=== PATIENT | male | born 1975 | race Caucasian/White ===

== ENCOUNTER 2021-08-27 21:19 | Emergency (ER) | payer BC ==
[~2021-08-27] VITALS: Ht 177.8 cm; Wt 120.0 kg
[2021-08-27] MEDS ORDERED: ONDANSETRON PF 4 MG/2 ML VIAL. IVP ONE (21:45)
[2021-08-27] MEDS ORDERED: methylPREDNISolone SOD SUCC PF 125 MG/2 ML VIAL. IV ONE (21:45)
[2021-08-27] MEDS ORDERED: IV NORMAL SALINE 1000ML BAG 1,000 ML IV ONE (21:45)
[2021-08-27 21:59] LABS: BASO # 0.1 x10^3/uL (0.0-0.2); BASO % 1 % (0-3); EOS # 0.5 x10^3/uL (0.0-0.7); EOS % 7 % (0-3); HEMOGLOBIN 14.5 g/dL (13.0-17.5); LYMPH # 2.1 x10^3/uL (1.0-4.8); LYMPH % 30 % (24-48); MEAN CORPUSCULAR HEMOGLOBIN 29 pg (25-35); MEAN CORPUSCULAR HGB CONC 35 g/dL (31-37); MEAN CORPUSCULAR VOLUME 83 fL (79-100); MONO # 0.6 x10^3/uL (0.0-1.1); MONO % 9 % (0-9); NEUT # 3.8 x10^3/uL (1.8-7.7); NEUT % 53 % (31-73); PLATELET COUNT 201 x10^3/uL (140-400); RED BLOOD COUNT 5.03 x10^6/uL (4.30-5.70); RED CELL DISTRIBUTION WIDTH 13.3 % (11.5-14.5); WHITE BLOOD COUNT 7.1 x10^3/uL (4.0-11.0)
[2021-08-27 22:07] LABS: CALCIUM 8.4 mg/dL (8.5-10.1); CREATININE 1.3 mg/dL (0.7-1.3); GFR 59.2; POTASSIUM 3.3 mmol/L (3.5-5.1)
[2021-08-27 22:13] LABS: ALBUMIN 3.9 g/dL (3.4-5.0); MAGNESIUM 1.9 mg/dL (1.8-2.4); TOTAL BILIRUBIN 0.4 mg/dL (0.2-1.0); TOTAL PROTEIN 7.9 g/dL (6.4-8.2)
[2021-08-27] MEDS ORDERED: IOHEXOL 350 MG/ML 100 ML VIAL. IV ONE (22:15)
[2021-08-27] MEDS ORDERED: CONTRAST GIVEN. MC PRN (22:15)
--- NOTE | 2021-08-27 22:23 | PHYS DOC ---
Past Medical History Past Medical History: Hypertension, Other (vertigo) Past Surgical History: No Surgical History Smoking Status: Never Smoker Alcohol Use: None General Adult EDM: Chief Complaint: HYPERTENSION HPI: HPI: Patient is a 45 year old male with history of hypertension, vertigo who presents to the ED today complaining of dizziness with nausea and vomiting that began around 5 PM while he was working in the garage. He states symptoms are worse when he is moving fast. He states he started feeling he is spinning. He states his had similar symptoms before with vertigo. He mentions he saw a chiropractor today and had his neck adjusted and currently has no neck pain it "just feels swollen". He states he also had some pain on the back of his head though currently he has no pain. Review of Systems: Review of Systems: Constitutional: Denies fever or chills. [] Eyes: Denies change in visual acuity. [] HENT: Denies nasal congestion or sore throat. [] Respiratory: Denies cough or shortness of breath. [] Cardiovascular: Denies chest pain or edema. [] GI: Denies abdominal pain, nausea, vomiting, bloody stools or diarrhea. [] : Denies dysuria. [] Musculoskeletal: Denies back pain or joint pain. [] Integument: Denies rash. [] Neurologic: Reports dizziness, headache. Denies focal weakness or sensory changes. [] Endocrine: Denies polyuria or polydipsia. [] Lymphatic: Denies swollen glands. [] Psychiatric: Denies depression or anxiety. [] Heart Score: C/O Chest Pain: N/A Risk Factors: Risk Factors: DM, Current or recent (<one month) smoker, HTN, HLP, family history of CAD, obesity. Risk Scores: Score 0 - 3: 2.5% MACE over next 6 weeks - Discharge Home Score 4 - 6: 20.3% MACE over next 6 weeks - Admit for Clinical Observation Score 7 - 10: 72.7% MACE over next 6 weeks - Early Invasive Strategies Current Medications: Current Medications Medications (Trade) Dose Ordered Sig/Lilia Start Time Stop Time Status Last Admin Dose Admin Info (CONTRAST GIVEN -- Rx MONITORING) 1 each PRN DAILY PRN 08/27/21 22:15 08/29/21 22:14 Iohexol (Omnipaque 350 Mg/ml) 75 ml 1X ONCE 08/27/21 22:15 08/27/21 22:16 DC 08/27/21 22:14 75 ML Methylprednisolone Sodium Succinate (SOLU-Medrol 125MG VIAL) 125 mg 1X ONCE 08/27/21 21:45 08/27/21 21:46 UNV Ondansetron HCl (Zofran) 4 mg 1X ONCE 08/27/21 21:45 08/27/21 22:00 DC Sodium Chloride 1,000 ml @ 1,000 mls/hr 1X ONCE 08/27/21 21:45 08/27/21 22:44 Allergies: Allergies: Allergies Coded Allergies Type Severity Reaction Last Updated Verified No Known Drug Allergies 08/27/21 No Physical Exam: PE: Constitutional: Well developed, well nourished, no acute distress, non-toxic appearance. [] HENT: Normocephalic, atraumatic, bilateral external ears normal, oropharynx moist, no oral exudates, nose normal. [] Eyes: PERRLA, EOMI, conjunctiva normal, no discharge. [] Neck: Normal range of motion, no tenderness, supple, no stridor. [] Cardiovascular:Heart rate regular rhythm, no murmur [] Lungs & Thorax: Bilateral breath sounds clear to auscultation [] Abdomen: Bowel sounds normal, soft, no tenderness, no masses, no pulsatile masses. [] Skin: Warm, dry, no erythema, no rash. [] Back: No tenderness, no CVA tenderness. [] Extremities: No tenderness, no cyanosis, no clubbing, ROM intact, no edema. [] Neurologic: Alert and oriented X 3, normal motor function, normal sensory function, no focal deficits noted. Cranial nerves III to XII intact Psychologic: Affect normal, judgement normal, mood normal. [] Current Patient Data: Labs: Laboratory Tests Test 08/27/21 21:43 White Blood Count 7.1 x10^3/uL (4.0-11.0) Red Blood Count 5.03 x10^6/uL (4.30-5.70) Hemoglobin 14.5 g/dL (13.0-17.5) Hematocrit 42.0 % (39.0-53.0) Mean Corpuscular Volume 83 fL (79-100) Mean Corpuscular Hemoglobin 29 pg (25-35) Mean Corpuscular Hemoglobin Concent 35 g/dL (31-37) Red Cell Distribution Width 13.3 % (11.5-14.5) Platelet Count 201 x10^3/uL (140-400) Neutrophils (%) (Auto) 53 % (31-73) Lymphocytes (%) (Auto) 30 % (24-48) Monocytes (%) (Auto) 9 % (0-9) Eosinophils (%) (Auto) 7 % (0-3) H Basophils (%) (Auto) 1 % (0-3) Neutrophils # (Auto) 3.8 x10^3/uL (1.8-7.7) Lymphocytes # (Auto) 2.1 x10^3/uL (1.0-4.8) Monocytes # (Auto) 0.6 x10^3/uL (0.0-1.1) Eosinophils # (Auto) 0.5 x10^3/uL (0.0-0.7) Basophils # (Auto) 0.1 x10^3/uL (0.0-0.2) Sodium Level 136 mmol/L (136-145) Potassium Level 3.3 mmol/L (3.5-5.1) L Chloride Level 99 mmol/L (98-107) Carbon Dioxide Level 25 mmol/L (21-32) Anion Gap 12 (6-14) Blood Urea Nitrogen 19 mg/dL (8-26) Creatinine 1.3 mg/dL (0.7-1.3) Estimated GFR (Cockcroft-Gault) 59.2 BUN/Creatinine Ratio 15 (6-20) Glucose Level 131 mg/dL (70-99) H Calcium Level 8.4 mg/dL (8.5-10.1) L Magnesium Level 1.9 mg/dL (1.8-2.4) Total Bilirubin 0.4 mg/dL (0.2-1.0) Aspartate Amino Transferase (AST) 24 U/L (15-37) Alanine Aminotransferase (ALT) 24 U/L (16-63) Alkaline Phosphatase 40 U/L (46-116) L Troponin I High Sensitivity 5 ng/L (4-75) Total Protein 7.9 g/dL (6.4-8.2) Albumin 3.9 g/dL (3.4-5.0) Albumin/Globulin Ratio 1.0 (1.0-1.7) Laboratory Tests 08/27/21 21:43 Laboratory Tests 08/27/21 21:43 Vital Signs: Vital Signs Date Time Temp Pulse Resp B/P (MAP) Pulse Ox O2 Delivery O2 Flow Rate FiO2 08/27/21 22:03 82 18 174/95 (121) 95 Room Air 08/27/21 21:20 98.2 98.2 EKG: EK interpreted by Dr. Lynn sinus rhythm heart rate 87 no STEMI [] Radiology/Procedures: Radiology/Procedures: []PROCEDURE: CT ANGIOGRAPHY HEAD AND NECK Exam: CT head. CTA had and neck INDICATION: Dizziness TECHNIQUE: Sequential axial images through the head were obtained without the administration of IV contrast. Sequential axial images through the head and neck were obtained following the administration of 75 mL of Isovue-370. 3-D reformatted images were reconstructed from the axial data and reviewed. Exposure: One or more of the following in the visualized dose reduction techniques were utilized for this examination: 1. Automated exposure control 2. Adjustment of the MA and/or KV according to patient size 3. Use of iterative of reconstructive technique Comparisons: None FINDINGS: Head: No focal parenchymal lesion or hemorrhage is identified. There is no midline shift or sulcal effacement. No acute vascular territory infarction is identified. Horton-white distinction is preserved. The ventricular system is within normal limits without compression hydrocephalus. The basal cisterns are well maintained. The visualized portions of the paranasal sinuses and mastoid air cells are well- pneumatized. No acute fractures. CTA NECK: Visualized portions thoracic aorta are unremarkable. Standard three-vessel aortic arch anatomy. Right common carotid artery is patent without evidence of stenosis, occlusion or aneurysm. Cervical segment of the right internal carotid artery is patent without evidence of stenosis, occlusion or aneurysm. Left common carotid artery is patent without evidence of stenosis, occlusion or aneurysm. Cervical segment of the left internal carotid artery is patent without evidence of stenosis, occlusion or aneurysm. Right vertebral artery is patent to the basilar confluence without evidence of stenosis, occlusion or aneurysm. Left vertebral artery is patent basal confluence without evidence of stenosis, occlusion or aneurysm. Visualized paraspinal soft tissues are unremarkable. CTA HEAD: Minimal calcified plaque cavernous segment of the right internal carotid artery without stenosis stenosis. Right MCA is patent. Right CHRISTOPHER is patent. Minimal calcified plaque at the cavernous segment left internal carotid artery without significant stenosis. Left MCA is patent. Left CHRISTOPHER is patent. Basilar artery is patent without evidence of stenosis, occlusion or aneurysm. weld technician are patent bilaterally. Visualized portions of the dural venous sinuses are patent. IMPRESSION: 1. No acute intracranial abnormality. 2. Minimal calcified plaque at the cavernous segment of the internal carotid arteries bilaterally without significant stenosis. Electronically signed by: Zena Gatica MD (08/27/2021 10:37 PM) [facility] DICTATED and SIGNED BY: ZENA GATICA MD DATE: 08/27/212229 PROCEDURE: PORTABLE CHEST 1V XR CHEST 1V Clinical Indication: Reason: dizziness Comparison: None. Findings: The cardiomediastinal silhouette is normal. Lungs are clear. There is no pneumothorax. No pleural effusion is appreciated. No acute bone abnormality. IMPRESSION: No acute cardiopulmonary process. Electronically signed by: Eduardo Londono MD (08/27/2021 10:57 PM) [facility] DICTATED and SIGNED BY: EDUARDO LONDONO MD DATE: 08/27/21 8673 Course & Med Decision Making: Course & Med Decision Making Pertinent Labs and Imaging studies reviewed. (See chart for details) This a 45-year-old male patient presenting to the ED today complaining of dizziness, nausea that began this evening. History of vertigo. Vitals on arrival to the ED temperature 98.2, heart rate 90, respiration 18 on room air, O2 sats 97%, blood pressure 202/114. History of hypertension. CT of the head without contrast, CTA head and neck is negative. Labs are negative for any acute findings, UDS positive for alcohol Patient was given a liter of fluid and Zofran. Blood pressure has come down to 156/86 with a heart rate of 82. He reports feeling much better and desires to go home. Discharge to home. Follow-up with PCP in in the course of this week or next week Leonidas Disclaimer: Leonidas Disclaimer: This electronic medical record was generated, in whole or in part, using a voice recognition dictation system. Departure Departure Impression: Primary Impression: Vertigo Additional Impressions: High blood pressure Qualified Codes: I10 - Essential (primary) hypertension Nausea & vomiting Qualified Codes: R11.2 - Nausea with vomiting, unspecified Disposition: 01 HOME / SELF CARE / HOMELESS Condition: STABLE Referrals: CHAIM SAHU MD (PCP) follow up in the next 7 days ROSAURA ALMANZA MD follow up in the next 7 days Patient Instructions: Hypertension, Vertigo, [id number] Additional Instructions: You were evaluated in the emergency room for symptoms consistent with vertigo. Please follow-up with your primary care doctor in the course of this week or next week. We provided you neurologist please follow-up with him in the next 1 to 2 weeks. Come back to the ED at any point symptoms worsen. We will sent you home on meclizine, you can take it as needed for dizziness. Take Zofran as needed for nausea and vomiting Scripts Ondansetron (ONDANSETRON ODT) 4 Mg Tab.rapdis 1 TAB PO PRN Q6-8HRS, #16 TAB Prov: PITA MAJOR APRN 08/27/21 Meclizine Hcl (MECLIZINE HCL) 25 Mg Tablet 1 TAB PO PRN TID PRN for DIZZINESS, #15 TAB Prov: PITA MAJOR APRN 08/27/21 PITA MAJOR APRN Aug 27, 2021 22:23
--- NOTE | 2021-08-27 22:39 | RAD ---
Exam: CT head. CTA had and neck INDICATION: Dizziness TECHNIQUE: Sequential axial images through the head were obtained without the administration of IV co ntrast. Sequential axial images through the head and neck were obtained following the administration of 75 mL of Isovue-370. 3-D reformatted images were reconstructed from the axial data and reviewed. Exposure: One or more of the following in the visualized dose reduction techniques were utilized for this examination: 1. Automated exposure control 2. Adjustment of the MA and/or KV according to patient size 3. Use of iterative of reconstructive technique Comparisons: None FINDINGS: Head: No focal parenchymal lesion or hemorrhage is identified. There is no midline shift or sulcal effaceme nt. No acute vascular territory infarction is identified. Horton-white distinction is preserved. The ventricular system is within normal limits without compression hydrocephalus. The basal cisterns are well maintained. The visualized portions of the paranasal sinuses and mastoid air cells are well-pneumatized. No acute fractures. CTA NECK: Visualized portions thoracic aorta are unremarkable. Standard three-vessel aortic arch anatomy. Right common carotid artery is patent without evidence of stenosis, occlusion or aneurysm. Cervical s egment of the right internal carotid artery is patent without evidence of stenosis, occlusion or aneu rysm. Left common carotid artery is patent without evidence of stenosis, occlusion or aneurysm. Cervical se gment of the left internal carotid artery is patent without evidence of stenosis, occlusion or aneury sm. Right vertebral artery is patent to the basilar confluence without evidence of stenosis, occlusion or aneurysm. Left vertebral artery is patent basal confluence without evidence of stenosis, occlusion or aneurysm. Visualized paraspinal soft tissues are unremarkable. CTA HEAD: Minimal calcified plaque cavernous segment of the right internal carotid artery without stenosis sten osis. Right MCA is patent. Right CHRISTOPHER is patent. Minimal calcified plaque at the cavernous segment left internal carotid artery without significant st enosis. Left MCA is patent. Left CHRISTOPHER is patent. Basilar artery is patent without evidence of stenosis, occlusion or aneurysm. combination presser are patent bilater ally. Visualized portions of the dural venous sinuses are patent. IMPRESSION: 1. No acute intracranial abnormality. 2. Minimal calcified plaque at the cavernous segment of the internal carotid arteries bilaterally wi thout significant stenosis. Electronically signed by: Zena Torrez MD (08/27/2021 10:37 PM) [facility]
--- NOTE | 2021-08-27 23:00 | RAD ---
XR CHEST 1V Clinical Indication: Reason: dizziness Comparison: None. Findings: The cardiomediastinal silhouette is normal. Lungs are clear. There is no pneumothorax. No pleural eff usion is appreciated. No acute bone abnormality. IMPRESSION: No acute cardiopulmonary process. Electronically signed by: Eduardo Londono MD (08/27/2021 10:57 PM) [facility]
[2021-08-27 23:17] LABS: BILIRUBIN,URINE NEGATIVE (NEG); CLARITY,URINE CLEAR; COLOR,URINE YELLOW; NITRITE,URINE NEGATIVE (NEG); PROTEIN,URINE NEGATIVE (NEG-TRACE); UROBILINOGEN,URINE 0.2 mg/dL (0.2 mg/dL)
[2021-08-27 23:18] LABS: BACTERIA,URINE 0 /HPF (0-FEW); RBC,URINE 0 /HPF (0-2); WBC,URINE 0 /HPF (0-4)
[2021-08-27 23:30] VITALS: BP 158/90
[2021-08-27 23:30] LABS: BARBITURATES NEG (NEG); BENZODIAZEPINES NEG (NEG); CANNABINOIDS NEG (NEG); COCAINE NEG (NEG); METHADONE NEG (NEG); OPIATES NEG (NEG); PHENCYCLIDINE NEG (NEG)
[2021-08-27 23:33] LABS: AMPHETAMINE/METHAMPHETAMINE NEG (NEG)
[2021-08-27] MEDS ORDERED: MECL-75 PO (23:50)
[2021-08-27] MEDS ORDERED: ONDA4TAB12 PO (23:50)
--- NOTE | 2021-08-28 04:42 | EKG ---
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
== END 2021-08-28 00:01 | disposition home or self-care (01) ==
LOC: ER 21:19
DX: R42 Dizziness and giddiness (principal); R11.2 Nausea with vomiting, unspecified; I10 Essential (primary) hypertension
CPT/HCPCS: 36415; 70450; 70496; 70498; 71045; 80053; 80307; 81001; 83735; 83880; 84484; 85025; 93005; 96361; 96374; 99285; J2405; J7030; Q9967